=== PATIENT | female | born 1965 | race Caucasian/White ===

== ENCOUNTER 2020-10-07 15:33 | Emergency (ER) | payer OTHER ==
[~2020-10-07] VITALS: Ht 160 cm; Wt 62.6 kg
[2020-10-07] MEDS ORDERED: FORTAMET500 MG PO (15:52)
[2020-10-07] MEDS ORDERED: VITAMIN C100 MG PO (15:53)
[2020-10-07] MEDS ORDERED: CRESTOR20 MG PO (15:53)
[2020-10-07] MEDS ORDERED: DICLOFENAC SODI75 MG PO (18:45)
== END 2020-10-07 18:51 | disposition home or self-care (01) ==
LOC: ER 15:33
DX: M94.0 Chondrocostal junction syndrome [Tietze] (principal)